=== PATIENT | female | born 1985 | race Caucasian/White ===

== ENCOUNTER 2022-02-27 02:54 | Outpatient (CLI) | payer BC, SELFPAY ==
[2022-02-27 08:41] LABS: HCT 38.7 % (36.0-46.0); HGB 13.1 g/dL (11.2-15.7); MCH 29.8 pg (27.0-33.0); MCHC 33.9 % (32.0-36.0); MCV 88 fL (80-95); MPV 9.8 fL (8.0-11.0); Platelet Count 235 10^3/uL (130-400); RBC 4.39 10^6/uL (3.93-5.22); RDW 12.5 % (11.7-14.6); RDW-SD 40.3 fL; WBC 6.21 10^3/uL (4.4-10.8)
[2022-02-27 09:54] LABS: ALT 15 U/L (14-59); AST 12 U/L (15-37); Albumin 4.4 g/dL (3.4-5.0); Alkaline Phosphatase 46 U/L (46-116); Anion Gap 11.3 mmol/L (3-11); BUN 13 mg/dL (7-18); CO2 25.7 mmol/L (21.0-32.0); Calcium 8.7 mg/dL (8.5-10.1); Calculated LDL 167 mg/dL (<100); Chloride 105 mmol/L (98-107); Cholesterol 238 mg/dL (<200); Glucose 99 mg/dL (74-106); HDL Cholesterol 49 mg/dL (40-60); Potassium 4.3 mmol/L (3.5-5.1); Sodium 142 mmol/L (136-145); Total Protein 7.3 g/dL (6.4-8.2); Triglyceride 112 mg/dL (<150)
== END 2022-02-27 02:55 | disposition home or self-care (01) ==
LOC: LBO 02:57
PROVIDERS: PCP Nurse Practitioner; Visit Provider Nurse Practitioner
DX: Z00.00 Encounter for general adult medical examination without abnormal findings (principal); F41.9 Anxiety disorder, unspecified; Z13.220 Encounter for screening for lipoid disorders
CPT/HCPCS: 36415; 80053; 80061; 85027

== ENCOUNTER 2023-04-06 10:35 | Outpatient (REF) | payer BC, SELFPAY ==
--- NOTE | 2023-04-06 09:45 | PAPFT_PTH ---
PATIENT: Kamryn Acosta LOC: [facility] U#:[id number] AGE/SX: 37/F ROOM: RE04/06/[address]: Rahel Lane NP : 1985 BED: DIS: 04/06/2023 SPEC #: [id number] RECD: 04/06/23 13:01 STATUS: VAL RESuhail #: [id number] AILYN: 04/06/23 09:[address]: Rahel Lane NP DEPT: [facility] Cytology RECD BY: Dilcia Rodriguez ENTERED: 04/06/23 13:01 SP TYPE: PAPFT OTHR DR: Katelyn Cisneros APRN Tissues: 1 - CX/ENDOCX FOR PAP SMEARS Procedures: PAP THIN PREP/[facility] Screening HPV DNA PROBE Comments: [id number] (CHLAMYDIA/GC)
[2023-04-07 17:59] LABS: Chlamydia Result Negative (Negative); GC Result Negative (Negative)
== END 2023-04-06 10:36 | disposition home or self-care (01) ==
LOC: LBN 10:35
PROVIDERS: PCP Nurse Practitioner; Visit Provider Nurse Practitioner Women's Health
DX: Z11.51 Encounter for screening for human papillomavirus (HPV) (principal)
CPT/HCPCS: 87491; 87591; 88142; 87624

== ENCOUNTER 2023-05-17 00:55 | Outpatient (CLI) | payer BC, SELFPAY ==
--- NOTE | 2023-05-17 13:21 | DI.MAMMO_ITS ---
Exam(s) MAMMO SCREENING EXAM: MAMMO SCREENING CLINICAL HISTORY: screening, Z12.39. TECHNIQUE: Bilateral full field digital CC and MLO mammographic images were obtained with 3D tomosyn thesis and utilizing computer aided detection (CAD). COMPARISON: None. This is a baseline mammogram on this 38-year-old patient. FINDINGS: The fibroglandular tissue is moderately dense, this somewhat decreasing the sensitivity of the mammog roddy for finding hidden underlying lesions. There are no obvious spiculated masses nor malignant appearing microcalcification groups. There is no significant architectural distortion nor skin thickening-retraction. IMPRESSION: No radiographic evidence of malignancy. Dense bilateral fibroglandular tissue. BI-RADS Category 1 - Negative Breast Density - Category C - Heterogeneously dense Breast density Category C or D implies that the patient has dense breast tissue. Dense breast tissue can make it harder to find cancer on a mammogram. Dense breast tissue is also associated with an incr eased risk of breast cancer. This information about the result of the mammogram report was provided to the patient to raise their awareness. Use this report when you speak with the patient about their risks for breast cancer, which includes their family history. At that time, you may recommend additional screening tests (Ultrasoun d or MRI) as these tests may add significant information. A negative radiographic report should not delay biopsy if a dominant or clinically suspicious mass is present. Up to ten percent of cancers are not identified on mammography. A negative report may reinforce clinical impression. Adenosis and dense breasts may obscure an underlying neoplasm. False positive reports average 6 to 10%. Patient will receive a letter notifying them of these results.
== END 2023-05-17 01:15 ==
LOC: DI 00:55
PROVIDERS: PCP Nurse Practitioner; Visit Provider Nurse Practitioner
DX: Z12.31 Encounter for screening mammogram for malignant neoplasm of breast (principal)
CPT/HCPCS: 77063; 77067

== ENCOUNTER 2024-06-26 01:51 | Outpatient (CLI) | payer BC, SELFPAY ==
[2024-06-26 08:40] LABS: Calculated LDL 148 mg/dL (<100); Cholesterol 228 mg/dL (<200); HDL Cholesterol 53 mg/dL (40-60); Triglyceride 137 mg/dL (<150)
== END 2024-06-26 01:52 | disposition home or self-care (01) ==
LOC: LBO 01:52
PROVIDERS: Absent Provider Nurse Practitioner; PCP Nurse Practitioner; Referring Provider Nurse Practitioner; Visit Provider Nurse Practitioner
DX: Z13.220 Encounter for screening for lipoid disorders (principal)
CPT/HCPCS: 36415; 80061

== ENCOUNTER 2024-06-30 14:51 | Outpatient (CLI) | payer BC, SELFPAY ==
--- NOTE | 2024-06-30 14:08 | DI.RAD_ITS ---
Exam(s) XR ANKLE RT COMPLETE EXAM: XR ANKLE RT COMPLETE CLINICAL HISTORY: Ankle sprain, S93.409A, R/O anterior fracture. TECHNIQUE: 2D digital imaging was performed. Three views. COMPARISON: No exams were available for comparison FINDINGS: BONES: No acute fracture is present. No bony destructive lesion is seen. JOINTS: The ankle mortise is normally aligned. SOFT TISSUE: Mild swelling around the malleoli. IMPRESSION: Soft tissue swelling. No evidence of fracture. DATA REPOSITORY: RADIATION DOSE DELIVERED:
== END 2024-06-30 15:11 ==
LOC: DI 14:52
PROVIDERS: PCP Nurse Practitioner; Visit Provider Family Medicine
DX: S93.401A Sprain of unspecified ligament of right ankle, initial encounter (principal); X58.XXXA Exposure to other specified factors, initial encounter
CPT/HCPCS: 73610